=== PATIENT | female | born 1985 | race Caucasian/White ===

== ENCOUNTER 2016-03-30 12:59 | Emergency (ER) | payer MEDICAID ==
[2016-03-30 13:00] VITALS: BMI 21.1
[2016-03-30 13:47] VITALS: TEMP 98.6
[2016-03-30 14:01] VITALS: BP 100/62; PULSE 81
--- NOTE | 2016-03-30 14:07 | EDPRACDOC ---
- General Chief Complaint: Fall Stated Complaint: FALL LOWER BACK PAIN & HIP Time Seen by Provider: 03/30/16 14:02 - History of Present Illness Onset: SUPPLY COORDINATOR HPI: PT STATES SHE WAS FEEDING HER DOG WHEN SHE TRIPPED OVER THE DOG, FELL ONTO RIGHT SIDE, COMPLAINS OF RIGHT POSTERIOR RIB PAIN AND RIGHT HIP PAIN, STATES PAIN IS SHARP, STABBING AND SEVERE, WORSE WITH DEEP BREATH AND MOVEMENT OF THE HIP. NO LOC. Pain Severity: Reports: Severe Injuries/Pain Location: Reports: back, lower extremity Reason for Fall: Reports: tripped Loss of Consciousness: no loss of consciousness Modifying Factors: improves with: movement Associated Symptoms (Fall): Reports: denies symptoms Allergies/Adverse Reactions: Allergies aspirin Allergy (Severe, Verified 03/30/16 13:47) Difficulty Breathing causes her to wheeze sometimes hydromorphone HCl [From Dilaudid] Allergy (Severe, Verified 03/30/16 13:47) Unknown/See Comments throat swells meperidine HCl [From Demerol] Allergy (Mild, Verified 03/30/16 13:47) Unknown/See Comments throat swells nortriptyline [Nortriptyline] Allergy (Unknown, Verified 03/30/16 13:47) Unknown/See Comments throat swells diclofenac Allergy (Verified 03/30/16 13:47) Difficulty Breathing duloxetine HCl [From Cymbalta] Allergy (Verified 03/30/16 13:47) See Comments confusion ibuprofen [From Motrin] Allergy (Verified 03/30/16 13:47) Difficulty Breathing causes her to wheeze sometimes metoclopramide HCl [From Reglan] Allergy (Verified 03/30/16 13:47) Edema-Generalized throat swells Home Medications: Ambulatory Orders Gabapentin 400 mg PO TID 12/22/15 Albuterol Sulfate [Proair Hfa] 2 puff INH Q4-6H PRN 02/14/16 ED Past Medical History - History Reviewed Yes Nurses notes reviewed and agree except as marked - Patient Medical History Neurological History: Reports: Cerebrovascular Accident (from TBI 2010), Seizures (ONLY WITH INTRACRANIAL PRESSURE), Migraine, Multiple Sclerosis Cardiac History: Reports: Hypertension (secondary to increased ICP at times) Respiratory History: Reports: Asthma (SEVERE) GI/ History: Reports: Kidney Stones Psychological History: Reports: Depression, Anxiety Systemic History: Reports: Cancer (lupus), Anemia Additional Past Medical History: CHRONIC HEADACHES AND NECK PAIN. Surgical History: Reports: Cholecystectomy (2008) - Family Medical History Reports: Hypertension (MATERNAL GP), Cardiac Disorders (MATERNAL GF). Denies: Diabetes, Cancer, Stroke - Social Medical History Smoking Status: Never smoker EDM Review of Systems - Review of Systems Eyes: negative: Blurred Vision, Double Vision Nose: negative: Bleeding Respiratory: negative: Cough, Shortness of Breath, Wheezing Gastrointestinal: negative: Nausea, Vomiting Neurological: negative: Dizziness, Headache, Numbness, Weakness Musculoskeletal: Hip, Ribs Integumentary: No Symptoms Reported - Physical Exam Constitutional: Alert (Awake), No apparent distress Oriented to: Time, Person, Place Last recorded Vital Signs: Last Vital Signs Temp 98.6 F 03/30/16 13:42 Pulse 81 03/30/16 14:00 Resp 18 03/30/16 14:00 BP 100/62 03/30/16 14:00 Pulse Ox 100 03/30/16 14:00 Oxygen Pulse Oxygen Saturation 100 O2 Device Room Air Oxygen Flow Rate Fraction of Inspired Oxygen ( FIO2) - HEENT Head: Normal ( normocephalic) Eye Exam: Normal (PERRL, EOMI, Sclera white) - Respiratory/Cardiovascular Respiratory: Normal - CTA (BBS clear to auscultation without adventitious sounds ) Cardiovascular: Normal (RRR without murmur, gallop or rub) - Musculoskeletal Back: Thoracic TTP (RIGHT POSTERIOR RIB PAIN). negative: Lumbar TTP Extremities: Normal - Integumentary Skin: Normal, Warm, Dry Lymphatics: Normal (no adenopathy) - Neurologic Memory Impaired: Normal Motor Function: Normal (Normal tone, Pulses 2+ No cyanosis or edema, FROM) Cranial Nerve: Normal (CN II-X11 intact sensation, strength 5/5) Cerebellar: Normal Mood Description: Normal Perception: Normal ED Injury/Fall Exam - Physical Exam Head Injury: no evidence of injury Extremity Exam: pain with movement (RIGHT HIP) Skin: Normal, Warm, Dry - [place] Coma Score Best Eye Response ([place]): (4) open spontaneously Best Verbal Response ([place]): (5) oriented Best Motor Response ([place]): (6) obeys commands [place] Total: 15 - Differential Diagnosis Contusion, Fracture - Diagnostic Imaging RIGHT RIBS W CXR Image interpreted by: Radiologist RIGHT RIBS AND CHEST - 3+ VIEW COMPARISON: Radiograph 02/08/2016 FINDINGS: Normal cardiac silhouette. No pneumothorax, pulmonary contusion, pleural fluid. No evidence of fracture. Dedicated views of the RIGHT ribs demonstrate no displaced fracture. Cholecystectomy clips noted RIGHT upper quadrant. IMPRESSION: 1. No radiographic evidence of thoracic trauma. 2. No RIGHT rib fracture or pneumothorax. Decision Time to Discharge: 15:06 - Departure Disposition: Home Condition: Stable Final Diagnosis: Right-sided chest wall pain, Right hip pain, Accidental fall Instructions: RICE: Routine Care for Injuries, Chest Wall Pain Education/Counseling Given To: Patient Education/Counseling Given Regarding: Diagnosis, Treatment, Prognosis, Follow Up Referrals: Emma Ojeda PA [Primary Care Provider] - One Week Additional Instructions: APPLY WARM COMPRESSES TO AREAS OF SORENESS 20 MINS AT A TIME 4-5 TIMES DAILY NEEDED FOR PAIN. USE TYLENOL NEEDED FOR PAIN.
--- NOTE | 2016-03-30 14:59 | DIRPT ---
CLINICAL DATA: TRIPPED AND FELL OVER HER DOG ABOUT 1 1/2 HRS AGO TODAY. PAIN ON RIGHT LOWER AXILLARY SIDE MARKED WITH BB. EXAM: RIGHT RIBS AND CHEST - 3+ VIEW COMPARISON: Radiograph 02/08/2016 FINDINGS: Normal cardiac silhouette. No pneumothorax, pulmonary contusion, pleural fluid. No evidence of fracture. Dedicated views of the RIGHT ribs demonstrate no displaced fracture. Cholecystectomy clips noted RIGHT upper quadrant. IMPRESSION: 1. No radiographic evidence of thoracic trauma. 2. No RIGHT rib fracture or pneumothorax. Electronically Signed By: Norris Hartley M.D. On: 03/30/2016 14:57
== END 2016-03-30 15:25 | disposition home or self-care (01) ==
LOC: EDMC 12:59
DX: R07.89 Other chest pain (principal); M25.551 Pain in right hip; W19.XXXA Unspecified fall, initial encounter
CPT/HCPCS: 99282